=== PATIENT | female | born 1985 | race Caucasian/White ===

== ENCOUNTER → 2017-08-17 | Outpatient (CLI) | payer OTHER | LOC: FIMAGING 08:35 | PROVIDERS: ATTEND Hospitalist | DX: Z34.82 Encounter for supervision of other normal pregnancy, second trimester (principal); F41.8 Other specified anxiety disorders; Z3A.19 19 weeks gestation of pregnancy ==

== ENCOUNTER → 2017-09-21 | Outpatient (CLI) | payer OTHER | LOC: FIMAGING 11:31 | PROVIDERS: ATTEND Hospitalist | DX: Z34.02 Encounter for supervision of normal first pregnancy, second trimester (principal); Z3A.24 24 weeks gestation of pregnancy ==

== ENCOUNTER 2017-11-15 22:11 | Observation (INO) | payer OTHER ==
[2017-11-15] MEDS ORDERED: ONDANSETRON DISINTEGRATING 4 MG TAB PO PRN (22:30)
[2017-11-15] MEDS ORDERED: LOPERAMIDE HCL 1 MG/5 ML UDL PO PRN (22:54)
[2017-11-15] MEDS ORDERED: NITROFURANTOIN MACROBID 100 MG CAP PO ONE (23:45)
== END 2017-11-16 00:20 | disposition home or self-care (01) ==
LOC: FLD 22:11
PROVIDERS: ADMIT Obstetrics & Gynecology; ATTEND Obstetrics & Gynecology
DX: O60.03 Preterm labor without delivery, third trimester (principal); O21.9 Vomiting of pregnancy, unspecified; Z3A.32 32 weeks gestation of pregnancy
CPT/HCPCS: 59025; G0378

== ENCOUNTER 2018-01-06 13:25 | Inpatient (IN) | payer OTHER ==
[2018-01-06] MEDS ORDERED: IBUPROFEN 600 MG TAB PO PRN (13:54)
[2018-01-06] MEDS ORDERED: MISOPROSTOL 200 MCG TAB PO PRN (13:54)
[2018-01-06] MEDS ORDERED: OLIVE OIL 118 ML BTL MISC PRN (13:54)
[2018-01-06] MEDS ORDERED: EPSOM SALT 454 GM TP PRN (13:54)
[2018-01-06] MEDS ORDERED: OXYTOCIN/RINGERS LACTATE 1,000 ML IV PRN (13:54)
[2018-01-06] MEDS ORDERED: LR 1,000 ML IV PRN (13:54)
[2018-01-06] MEDS ORDERED: AMMONIA AROMATIC 1 EACH AMP IH PRN (13:54)
[2018-01-06] MEDS ORDERED: LIDOCAINE 1% 300 MG/30 ML SDV SC PRN (13:54)
[2018-01-06] MEDS ORDERED: TERBUTALINE SULFATE 1 MG/ML VIAL IV PRN (13:54)
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
[2018-01-06 14:50] LABS: PLATELET COUNT 209 10^3/uL (150-400)
[2018-01-06] MEDS: MISOPROSTOL 50 MCG CAP PO SCH ×3 (15:29→23:36)
[2018-01-06] MEDS ORDERED: ACETAMINOPHEN 325 MG TAB ONE (17:11)
[2018-01-06] MEDS ORDERED: ACETAMINOPHEN 325 MG TAB PO ONE (17:30)
[2018-01-06] MEDS ORDERED: ZOLPIDEM TARTRATE 5 MG TAB PO ONE (20:15)
[2018-01-06] MEDS ORDERED: LR 500 ML IV PRN (20:16)
[2018-01-06] MEDS ORDERED: OXYTOCIN/RINGERS LACTATE 500 ML IV SCH (20:30)
[2018-01-06] MEDS ORDERED: ACETAMINOPHEN 500 MG TAB PO ONE (23:30)
[2018-01-07] MEDS ORDERED: BUPIVACAINE 0.25% 30 ML SDV ONE (01:38)
[2018-01-07] MEDS ORDERED: PHENYLEPHRINE HCL 100 MCG/ML SYR ONE (01:38)
[2018-01-07] MEDS ORDERED: fentaNYL 2MCG/ML/BUP 0.1% RTU 100 ML BAG EP ONE (01:38)
[2018-01-07] MEDS ORDERED: METOCLOPRAMIDE 10 MG/2 ML VIAL IVP PRN (02:11)
[2018-01-07] MEDS ORDERED: ONDANSETRON 4 MG/2 ML VIAL IVP PRN ×2 (02:11→06:28)
[2018-01-07] MEDS ORDERED: PHENYLEPHRINE HCL 100 MCG/ML SYR IVP PRN (02:11)
--- NOTE | 2018-01-07 02:14 | PREANESOB ---
Obstetric Pre-Anesthesia Info - General Info Proposed Procedure: CSE for : 1 Para: 0 DEREK: 01/07/18 Gestational Age: 39 week(s) and 6 day(s) - Info Status: Full Term - Labor Status Cervical Dilation per last OB SVE: 2 Amniotic Fluid Color: Clear PIH: No Magnesium Sulfate in Use: No Indications for Labor Analgesia: Augmentation of Labor, Induction of Labor, Pain Control Labor Epidural: Proposed Anesthesia Allergies/Adverse Reactions: Allergy/AdvReac Type Severity Reaction Status Date / Time latex Allergy Itching Verified 01/06/18 13:51 pineapple Allergy Swelling/ne Verified 01/06/18 13:51 ck,face,thr oat Sulfa (Sulfonamide Allergy Hives Verified 01/06/18 13:51 Antibiotics) Home Medications: Medication Instructions Recorded Ambien 10 mg PO HS PRN 01/14/14 Xanax 0.5 mg PO DAILY PRN 01/14/14 Iron PO DAILY 01/06/18 Vit27&Calcium/Iron/FA 1 each PO DAILY 01/06/18 [ Rx 1 Tablet (RX)] Ranitidine HCl [Zantac 75] 150 mg PO DAILY 01/06/18 buPROPion XL [Wellbutrin Xl] 300 mg PO DAILY 01/06/18 Visit Medications: Generic Name Dose Route Start Last Admin Trade Name Marco Antonio PRN Reason Stop Dose Admin Ammonia (Aromatic Spirit) 1 each 01/06/18 13:54 Ammonia Aromatic IH 01/16/18 13:53 ONCE PRN Fainting Lactated Ringer's 1,000 mls @ 0 mls/hr 01/06/18 13:54 Lr IV 01/07/18 13:53 PRN PRN SEE PROTOCOL CONDITIONS Protocol Per Protocol Oxytocin/Lactated Ringer's 1,000 mls @ 0 mls/hr 01/06/18 13:54 Pitocin 20 Units/Lr (Premix) IV PRN PRN Post bleeding As Directed Lactated Ringer's 500 mls @ 500 mls/hr 01/06/18 20:16 Lr IV 01/07/18 20:17 PRN PRN Maternal Hypotension Oxytocin/Lactated Ringer's 500 mls @ 0 mls/hr 01/06/18 20:30 Pitocin 30 Units/Lr (Premix) IV 07/05/18 20:29 CONT GRAHAM Protocol Per Protocol Ibuprofen 600 mg 01/06/18 13:54 Motrin PO ONCE PRN post , pain Lidocaine HCl 300 mg 01/06/18 13:54 Lidocaine Hcl 1% SC 07/05/18 13:53 ONCE PRN episiotomy Magnesium Sulfate 454 gm 01/06/18 13:54 Epsom Salt TP 07/05/18 13:53 Q1H PRN perineal discomfort Misoprostol 800 - 1,000 mcg 01/06/18 13:54 Cytotec PO 07/05/18 13:53 ONCE PRN Vaginal Atony/Bleeding Misoprostol 50 mcg 01/06/18 15:15 01/06/18 23:36 Cytotec PO 01/07/18 03:16 50 mcg Q4H GRAHAM Administration [place] Oil 118 ml 01/06/18 13:54 Sweet Oil MISC 07/05/18 13:53 ONCE PRN perineal massage Terbutaline Sulfate 0.25 mg 01/06/18 13:54 Brethine IV 07/05/18 13:53 ONCE PRN Tachysystole Discontinued Medications Generic Name Dose Route Start Last Admin Trade Name Marco Antonio PRN Reason Stop Dose Admin Acetaminophen Confirm 01/06/18 17:11 Tylenol Administered 01/06/18 17:12 Dose 650 mg .ROUTE .STK-MED ONE Acetaminophen 650 mg 01/06/18 17:30 01/06/18 17:28 Tylenol PO 01/06/18 17:31 650 mg ONCE ONE Administration Acetaminophen 1,000 mg 01/06/18 23:30 01/06/18 23:36 Tylenol PO 01/06/18 23:31 1,000 mg ONCE ONE Administration Bupivacaine HCl Confirm 01/07/18 01:38 Sensorcaine 0.25% Sdv Administered 01/07/18 01:39 Dose 30 ml .ROUTE .STK-MED ONE Fentanyl/Bupivacaine HCl Confirm 01/07/18 01:38 Fentanyl/Bupivacaine/Ns 2 Mcg/Ml 0.1% (Premix Administered 01/07/18 01:39 Dose 100 ml EP .STK-MED ONE Phenylephrine HCl Confirm 01/07/18 01:38 Neosynephrine Administered 01/07/18 01:39 Dose 1,000 mcg .ROUTE .STK-MED ONE Zolpidem Tartrate 5 mg 01/06/18 20:15 01/06/18 20:46 Ambien PO 01/06/18 20:16 5 mg ONCE ONE Administration - Anesthesia History Response to Local Anesthetics: Normal (possibly needs higher dose) Anesthesia & Operative History: No Prior Problems - Social History Substance Use/Abuse: Denies - Vital Signs Height/Weight (Nursing): Height 162.56 cm Weight 81.193 kg - Focused Exam Neck exam: FROM Mallampati Score: Class 1 Mouth exam: normal dental/mouth exam Pulmonary: no respiratory distress Cardiovascular: regular rate and rhythym Labs: 01/06/18 13:35 Patient ABO/Rh O POSITIVE 01/06/18 13:35 - Plan Consent Signed and on Chart: Yes Patient/Guardian Understands and Agrees to Plan: Yes Urgent/Emergent Case: Chacho garcia completed preop but documented later for safe timely pt care
[2018-01-07] MEDS ORDERED: fentaNYL 2MCG/ML/BUP 0.1% RTU 100 ML EP SCH (02:30)
[2018-01-07] MEDS ORDERED: LR 500 ML IV SCH (02:30)
[2018-01-07] MEDS: MISOPROSTOL 50 MCG CAP PO SCH (04:17)
[2018-01-07] MEDS ORDERED: ACETAMINOPHEN 325 MG TAB PO ONE ×2 (07:00→11:45)
--- NOTE | 2018-01-07 09:17 | OBPROG ---
Labor Progress Note Assessment/Plan: Assessment: Plan: Subjective/Intrapartum Course: 01/07/18 09:14 patient was examined this am and was found to be complete. has labored down. began pushing but contractions have spaced. will start pitocin for augmentation. Objective: 01/06/18 13:35 Patient ABO/Rh O POSITIVE 01/06/18 13:35 - SVE Dilation (cm): 10 Effacement (%): 100 Station: +2 Amniotic Fluid Color: Clear - FHR Assessment Chicas FHR Pattern Variability: Moderate Oxytocin Orders Assessment - Pre-Induction/Augmentation Assessment Gestational Age: 39 week(s) and 6 day(s) ICD10 Worksheet Patient Problems: Problems Problem Status Onset PROM (premature rupture of membranes) Acute Term Acute
[2018-01-07] MEDS ORDERED: LR 500 ML IV PRN (09:19)
[2018-01-07] MEDS ORDERED: OXYTOCIN/RINGERS LACTATE 500 ML IV SCH (09:30)
[2018-01-07] MEDS ORDERED: ACETAMINOPHEN 325 MG TAB ONE (11:11)
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
[2018-01-07] MEDS ORDERED: SIMETHICONE 80 MG TAB CHEW PO PRN (13:44)
[2018-01-07] MEDS ORDERED: HYDROCORTISONE 0.5% CREAM TP PRN (13:44)
[2018-01-07] MEDS: ACETAMINOPHEN 325 MG TAB PO SCH ×2 (16:20→18:12)
[2018-01-07] MEDS: IBUPROFEN 600 MG TAB PO SCH (18:11)
[2018-01-08] MEDS: ACETAMINOPHEN 325 MG TAB PO SCH ×3 (00:05→18:37)
[2018-01-08] MEDS: IBUPROFEN 600 MG TAB PO SCH ×4 (00:05→18:36)
[2018-01-08] MEDS: HYDROCODONE/APAP 5/325 TAB PO PRN ×4 (03:29→21:49)
[2018-01-08] MEDS: buPROPion XL 150 MG TAB PO SCH (09:03)
--- NOTE | 2018-01-08 11:19 | OBPP ---
Progress Note Assessment/Plan: Assessment: 32 y/o PPD #1 s/p augmentation of labor with SROM Plan: support and routine PPC. Likely D/c home tomorrow. 01/08/18 11:19 Subjective/ Course: 01/08/18 11:16 Pt is doing well today. She has min cramping and perineal pain controlled with Ibuprofen. She is ambulating and voiding well and baby is doing well. They are working on breast feeding, baby is sleepy today. She has min lochia. Objective: 01/06/18 13:35 Patient ABO/Rh O POSITIVE 01/06/18 13:35 Temp Pulse Resp BP Pulse Ox 35.9 C L 86 15 104/71 94 01/08/18 08:00 01/08/18 08:00 01/08/18 08:00 01/08/18 08:00 01/08/18 08:00 Uterine Position/Fundal Height: Umbilicus -2 Uterine Tone: Firm Physical Exam - Physical Exam General Appearance: alert, no apparent distress Neck: non-tender, supple Respiratory: chest non-tender, lungs clear, normal breath sounds Abdomen: normal bowel sounds Extremities: swelling (no), David's sign (neg)
[2018-01-08] MEDS: DOCUSATE SODIUM 100 MG CAP PO PRN ×2 (11:47→20:44)
--- NOTE | 2018-01-08 12:35 | POSTANESTH ---
Post Anesthetic Evaluation Cardiovascular Status: Normal, Stable Respiratory Status: Normal, Stable Level of Consciousness/Mental Status: Can Participate in Eval Pain Control: Adequate, Prn Tx Ordered Nausea/Vomiting Control: Adequate, Prn Tx Ordered Complications Possibly Related to Anesthesia: None Noted
[2018-01-09] MEDS: HYDROCODONE/APAP 5/325 TAB PO PRN ×2 (03:43→12:31)
[2018-01-09] MEDS: IBUPROFEN 600 MG TAB PO SCH ×2 (03:46→08:45)
[2018-01-09] MEDS: ACETAMINOPHEN 325 MG TAB PO SCH ×3 (05:18→12:33)
[2018-01-09] MEDS: buPROPion XL 150 MG TAB PO SCH (08:45)
[2018-01-09 08:49] VITALS: BP 111/71
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
== END 2018-01-09 13:00 | disposition home or self-care (01) | DRG 775 ==
LOC: FLD 13:25 → OBSVTOIN 13:56 → FOB 01-07 15:45
PROVIDERS: ADMIT Obstetrics & Gynecology; ATTEND Obstetrics & Gynecology
PROC: 10E0XZZ Delivery of Products of Conception, External Approach (ICD-10-PCS; principal; 2018-01-07)
PROC: 0KQM0ZZ Repair Perineum Muscle, Open Approach (ICD-10-PCS; principal; 2018-01-07)
DX: O42.02 Full-term premature rupture of membranes, onset of labor within 24 hours of rupture (principal); Z37.0 Single live birth; O62.0 Primary inadequate contractions; O70.1 Second degree perineal laceration during delivery; O99.344 Other mental disorders complicating childbirth; F41.8 Other specified anxiety disorders; Z3A.39 39 weeks gestation of pregnancy; Z91.410 Personal history of adult physical and sexual abuse
CPT/HCPCS: J2370; J2405; J2590